=== PATIENT | male | born 1960 | race Caucasian/White ===

== ENCOUNTER 2023-07-07 17:21 | Emergency (ER) | payer SELFPAY ==
[~2023-07-07] VITALS: Ht 172.7 cm; Wt 78.3 kg
[2023-07-07 17:21] VITALS: TEMP 97.4; O2SAT 95
[2023-07-07 17:40] VITALS: BP 158/100
[2023-07-07] MEDS ORDERED: MEDR4PAK PO (19:31)
== END 2023-07-07 19:50 | disposition home or self-care (01) ==
LOC: M ED 17:21
DX: L30.9 Dermatitis, unspecified (principal)

== ENCOUNTER 2023-07-10 17:07 | Emergency (ER) | payer SELFPAY ==
[~2023-07-10] VITALS: Ht 172.7 cm; Wt 77.3 kg
[~2023-07-10 17:07] MED LIST: MEDR4PAK PO
[2023-07-10 17:19] VITALS: BP 155/100; TEMP 98.4; O2SAT 99
[2023-07-10] MEDS ORDERED: ELIM5CRE2 TOP (18:09)
== END 2023-07-10 18:24 | disposition home or self-care (01) ==
LOC: M ED 17:07
DX: S40.861A Insect bite (nonvenomous) of right upper arm, initial encounter (principal); S40.862A Insect bite (nonvenomous) of left upper arm, initial encounter; W57.XXXA Bitten or stung by nonvenomous insect and other nonvenomous arthropods, initial encounter; Y92.89 Other specified places as the place of occurrence of the external cause; Y93.89 Activity, other specified; Y99.8 Other external cause status; Z79.899 Other long term (current) drug therapy